=== PATIENT | female | born 1980 | race Two or more races ===

== ENCOUNTER → 2024-06-14 15:04 | Outpatient (REF) | payer BC, SELFPAY ==
[2024-06-14 10:59] LABS: % Basophils 0.2 % (0-2); % Eosinophils 2.8 % (0-6); % Immature Granulocytes 0.2 % (0-0.5); % Lymphocytes 32.3 % (20.5-51.1); % Monocytes 8.7 % (1.7-9.3); % Neutrophils 55.8 % (42.2-75.2); Absolute Eosinophils 0.1 10^3/uL (0-0.7); Absolute Lymphocytes 1.4 10^3/uL (1.2-3.4); Absolute Monocytes 0.4 10^3/uL (0.1-0.6); Absolute Neutrophils 2.4 10^3/uL (1.4-6.5); Hematocrit 30.2 % (37.0-47.0); Hemoglobin 9.4 g/dL (12.0-16.0); Mean Corp Hgb Conc. 31.1 g/dL (33.0-37.0); Mean Corpuscular Hgb 25.5 pg (27.0-31.0); Mean Corpuscular Volume 81.8 fL (81.0-99.0); Mean Platelet Volume 9.5 fL (7.4-10.4); Nucleated Red Blood Cells % 0 %; Platelet Count 313 10^3/uL (130-400); Red Blood Cell Count 3.69 10^6/uL (4.20-5.40); Red Cell Dist. Width 18.6 % (11.5-14.5); White Blood Cell Count 4.2 10^3/uL (4.8-10.8)
== END ==
LOC: OIDL 15:04
PROVIDERS: ATTENDING PHYSICIAN Internal Medicine Hematology & Oncology
DX: R71.8 Other abnormality of red blood cells (principal); D50.9 Iron deficiency anemia, unspecified; R53.83 Other fatigue; N92.0 Excessive and frequent menstruation with regular cycle
CPT/HCPCS: 85025

== ENCOUNTER → 2024-06-21 15:51 | Outpatient (REF) | payer BC, SELFPAY ==
[2024-06-21 11:23] LABS: % Basophils 0.9 % (0-2); % Eosinophils 3.1 % (0-6); % Immature Granulocytes 0.3 % (0-0.5); % Lymphocytes 33.7 % (20.5-51.1); % Monocytes 10.3 % (1.7-9.3); % Neutrophils 51.7 % (42.2-75.2); Absolute Basophils 0.1 10^3/uL (0-0.2); Absolute Eosinophils 0.2 10^3/uL (0-0.7); Absolute Monocytes 0.6 10^3/uL (0.1-0.6); Hematocrit 32.9 % (37.0-47.0); Hemoglobin 10.1 g/dL (12.0-16.0); Mean Corp Hgb Conc. 30.7 g/dL (33.0-37.0); Mean Corpuscular Hgb 25.9 pg (27.0-31.0); Mean Corpuscular Volume 84.4 fL (81.0-99.0); Mean Platelet Volume 9.1 fL (7.4-10.4); Nucleated Red Blood Cells % 0 %; Platelet Count 455 10^3/uL (130-400); Red Cell Dist. Width 19.3 % (11.5-14.5); White Blood Cell Count 5.8 10^3/uL (4.8-10.8)
== END ==
LOC: OIDL 15:51
PROVIDERS: ATTENDING PHYSICIAN Internal Medicine Hematology & Oncology
DX: R71.8 Other abnormality of red blood cells (principal)
CPT/HCPCS: 85025

== ENCOUNTER → 2024-06-29 16:09 | Outpatient (REF) | payer BC, SELFPAY ==
[2024-06-29 10:58] LABS: % Basophils 0.5 % (0-2); % Eosinophils 2.6 % (0-6); % Immature Granulocytes 0.2 % (0-0.5); % Lymphocytes 23.4 % (20.5-51.1); % Monocytes 8.6 % (1.7-9.3); % Neutrophils 64.7 % (42.2-75.2); Absolute Eosinophils 0.2 10^3/uL (0-0.7); Absolute Lymphocytes 1.4 10^3/uL (1.2-3.4); Absolute Monocytes 0.5 10^3/uL (0.1-0.6); Absolute Neutrophils 3.8 10^3/uL (1.4-6.5); Hematocrit 33.1 % (37.0-47.0); Hemoglobin 10.4 g/dL (12.0-16.0); Mean Corp Hgb Conc. 31.4 g/dL (33.0-37.0); Mean Corpuscular Hgb 27.1 pg (27.0-31.0); Mean Corpuscular Volume 86.2 fL (81.0-99.0); Mean Platelet Volume 8.5 fL (7.4-10.4); Platelet Count 348 10^3/uL (130-400); Red Blood Cell Count 3.84 10^6/uL (4.20-5.40); Red Cell Dist. Width 20.6 % (11.5-14.5); White Blood Cell Count 5.8 10^3/uL (4.8-10.8)
[2024-06-29 11:40] LABS: Nucleated Red Blood Cells % 0 %
[2024-06-29 11:53] LABS: IgA 113 mg/dl (70-400)
[2024-06-30 11:30] LABS: tTG IgA Antibody 3.2 EU/ml (0-19)
[2024-07-01 17:07] LABS: Endomysial IgA Antibody Titer <1:10 (<1:10)
== END ==
LOC: OIDL 16:09
PROVIDERS: ATTENDING PHYSICIAN Internal Medicine Hematology & Oncology
DX: R71.8 Other abnormality of red blood cells (principal)
CPT/HCPCS: 82784; 83516; 85025; 85045; 86231

== ENCOUNTER → 2024-07-06 12:02 | Outpatient (REF) | payer BC, SELFPAY ==
[2024-07-06 12:05] LABS: % Basophils 0.6 % (0-2); % Eosinophils 2.3 % (0-6); % Immature Granulocytes 0.4 % (0-0.5); % Lymphocytes 24.5 % (20.5-51.1); % Monocytes 12.6 % (1.7-9.3); % Neutrophils 59.6 % (42.2-75.2); Absolute Eosinophils 0.1 10^3/uL (0-0.7); Absolute Lymphocytes 1.3 10^3/uL (1.2-3.4); Absolute Monocytes 0.7 10^3/uL (0.1-0.6); Absolute Neutrophils 3.2 10^3/uL (1.4-6.5); Hematocrit 35.6 % (37.0-47.0); Hemoglobin 11.3 g/dL (12.0-16.0); Mean Corp Hgb Conc. 31.7 g/dL (33.0-37.0); Mean Corpuscular Hgb 27.8 pg (27.0-31.0); Mean Corpuscular Volume 87.7 fL (81.0-99.0); Mean Platelet Volume 9.6 fL (7.4-10.4); Nucleated Red Blood Cells % 0 %; Platelet Count 296 10^3/uL (130-400); Red Blood Cell Count 4.06 10^6/uL (4.20-5.40); Red Cell Dist. Width 21.7 % (11.5-14.5); White Blood Cell Count 5.3 10^3/uL (4.8-10.8)
== END ==
LOC: OIDL 12:02
PROVIDERS: ATTENDING PHYSICIAN Internal Medicine Hematology & Oncology
DX: D50.9 Iron deficiency anemia, unspecified (principal); R71.8 Other abnormality of red blood cells; R53.83 Other fatigue; N92.0 Excessive and frequent menstruation with regular cycle
CPT/HCPCS: 85025

== ENCOUNTER → 2024-07-13 13:27 | Outpatient (REF) | payer BC, SELFPAY ==
[2024-07-13 13:36] LABS: % Basophils 0.6 % (0-2); % Eosinophils 3.8 % (0-6); % Lymphocytes 26.8 % (20.5-51.1); % Monocytes 7.3 % (1.7-9.3); % Neutrophils 61.5 % (42.2-75.2); Absolute Eosinophils 0.2 10^3/uL (0-0.7); Absolute Lymphocytes 1.4 10^3/uL (1.2-3.4); Absolute Monocytes 0.4 10^3/uL (0.1-0.6); Absolute Neutrophils 3.2 10^3/uL (1.4-6.5); Hematocrit 36.4 % (37.0-47.0); Hemoglobin 11.5 g/dL (12.0-16.0); Mean Corp Hgb Conc. 31.6 g/dL (33.0-37.0); Mean Corpuscular Hgb 28.7 pg (27.0-31.0); Mean Corpuscular Volume 90.8 fL (81.0-99.0); Platelet Count 298 10^3/uL (130-400); Red Blood Cell Count 4.01 10^6/uL (4.20-5.40); Red Cell Dist. Width 20.4 % (11.5-14.5); White Blood Cell Count 5.2 10^3/uL (4.8-10.8)
== END ==
LOC: OIDL 13:27
PROVIDERS: ATTENDING PHYSICIAN Internal Medicine Hematology & Oncology
DX: R71.8 Other abnormality of red blood cells (principal); D50.9 Iron deficiency anemia, unspecified; R53.83 Other fatigue; N92.0 Excessive and frequent menstruation with regular cycle
CPT/HCPCS: 85025

== ENCOUNTER → 2024-08-18 06:26 | Day surgery (SDC) | payer BC, SELFPAY | LOC: GI 06:26 | PROVIDERS: ATTENDING PHYSICIAN Student in an Organized Health Care Education/Training Program | DX: D50.9 Iron deficiency anemia, unspecified (principal); K63.89 Other specified diseases of intestine; K63.5 Polyp of colon | CPT/HCPCS: 45380; 43239; 88305; 88342 ==

== ENCOUNTER 2024-09-18 11:17 | Emergency (ER) | payer BC, SELFPAY ==
[2024-09-18 11:22] VITALS: BP 122/86
[2024-09-18 13:32] VITALS: BMI 22.1
--- NOTE | 2024-09-18 14:12 | ED.GENMED ---
History of Present Illness
General
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
Source: patient
Exam Limitations: none
Time Seen by Provider: 09/18/24 13:18
Nursing documentation reviewed up to this point in time: agreed with
History of Present Illness
History of Present Illness:
Patient is a 42-year-old female who presents to the ER for evaluation. Patient recently had a Bartholin's cyst incised and a Word catheter placed on at [facility]. Since then she has had discomfort. Today she noticed that the catheter
was half hanging out and she had a lot of discomfort. It was still however draining. She reports pain however has now resolved and she reports the Brewer catheter is no longer in place. she is unsure if it fell out .she did not see it fall out .
She now was comfortable and has no pain she does continue to have some drainage but denies any fever chills.
Review of Systems
Review of Systems
Allergies reviewed?: Yes
All Other Systems: ROS reviewed and negative except as documented in HPI and ROS
Constitutional: Reports no symptoms
ABD/GI: Reports no symptoms; Denies abdominal pain, nausea or vomiting
: Reports other (pt had pain at site of bartholins cyst however has since resolved)
Musculoskeletal: Reports no symptoms
Skin: Reports no symptoms
Neurological: Reports no symptoms
Psychiatric: Reports no symptoms
Phy Exam
General Physical Exam
General Presentation: no apparent distress
General age: appears stated age
General Skin: warm and dry
General Habitus: normal
General Mental: alert
General Hydration: appears well hydrated
Genitourinary Exam Female
Exam Female: other (Left inner labia with healing Bartholin cyst there is no visible Word catheter, on examination with slight palpation there is a small amount of pus however there is no fluctuance no induration and wound looks to be healing)
Neurological Exam
Neurological Exam: alert and oriented x3
Musculoskeletal Exam
Musculoskeletal Exam: full ROM
Skin Exam
Skin Exam: normal color and warm/dry
Psychiatric Exam
Psychiatric Exam: normal mood/affect
Course
Vital Signs
Initial and Last Documented VS:
Initial Vital Signs
Temp Pulse Resp BP Pulse Ox
97.9 F 83 16 122/86 100
09/18/24 11:22 09/18/24 11:22 09/18/24 11:22 09/18/24 11:22 09/18/24 11:22
Last Documented Vital Signs
Temp Pulse Resp BP Pulse Ox
97.9 F 74 16 116/87 100
09/18/24 11:22 09/18/24 14:28 09/18/24 11:22 09/18/24 14:28 09/18/24 11:22
MDM/Problems Addressed
MDM/Problems Addressed:
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 She saw the Word catheter partially hanging out prior to arrival and was very uncomfortable and presented to the ER because of
however discomfort in the Word catheter is no longer in place. It is likely that the Word catheter fell out and because that was likely causing her discomfort she has no pain or discomfort now. Area was examined there is no foreign body or Word
catheter in place small amount pus was expressed initially however area is soft not fluctuant not indurated and appears to be healing.
*Critical Care Note
Total Time (30-74mins, 75-104mins- exclusive of procedures): Not Applicable
ED Attending Note
-
Portions of this chart may have been created with voice recognition software.� Occasional wrong word or��sound alike� substitutions may have occurred due to the inherent limitations of voice recognition software.
Discharge Plan
Departure
Patient Disposition: Home (Routine Discharge)
Date of Disposition: 09/18/24
Time of Disposition: 14:18
Patient with high blood pressure during this ER visit?: Yes
Condition: Fair
Covid-19: Not Applicable
Discharge Problem:
Bartholin cyst
Referrals:
Rosemarie Siegel CRNP [Family Provider] -
Activity Restrictions/Additional Instructions:
As discussed your Word catheter likely fell out. Your Bartholin cyst appears to be improving.
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 Return if any worsening of symptoms.
Interventions
Interventions:
*Risk Screen - Suicide Last Done: 09/18/24 11:22
*General Assessment Last Done: 09/18/24 11:22
*Neglect/Abuse Screening Last Done: 09/18/24 11:22
ED- Fall Risk Assessment Last Done: 09/18/24 13:32
*ED COVID-19 Vaccine History Last Done: 09/18/24 13:32
*Nursing Disposition Last Done: 09/18/24 14:28
ED-Female Genitourinary Assessment Last Done: 09/18/24 13:32
Discharge Date and Time
Discharge Date/Time: 09/18/24 14:33
Print Language: BELARUSIAN
[2024-09-18 14:28] VITALS: BP 116/87
== END 2024-09-18 14:33 | disposition home or self-care (01) ==
LOC: EMR 11:17
PROVIDERS: EMERGENCY PHYSICIAN Emergency Medicine; FAMILY PHYSICIAN Nurse Practitioner Family
DX: N75.0 Cyst of Bartholin's gland (principal)
CPT/HCPCS: 99282

== ENCOUNTER → 2025-03-23 07:59 | Outpatient (REF) | payer OTHER, SELFPAY | LOC: EMG 07:59 | PROVIDERS: ATTENDING PHYSICIAN Nurse Practitioner Family | DX: R20.2 Paresthesia of skin (principal); R20.0 Anesthesia of skin | CPT/HCPCS: 93922; 93925; 95886; 95911 ==

== ENCOUNTER 2025-09-19 06:27 | Day surgery (SDC) | payer OTHER, SELFPAY | END 2025-09-19 14:02 | disposition home or self-care (01) | LOC: GI 06:27 | PROVIDERS: ATTENDING PHYSICIAN Student in an Organized Health Care Education/Training Program | DX: K29.70 Gastritis, unspecified, without bleeding (principal) | CPT/HCPCS: 43239; 88305; 88342 ==